=== PATIENT | female | born 1995 | race Caucasian/White ===

== ENCOUNTER 2016-09-15 12:02 | Emergency (ER) | payer OTHER ==
[~2016-09-15] VITALS: Ht 170.2 cm; Wt 102.3 kg
[2016-09-15] MEDS ORDERED: PRENTAB13 PO (12:17)
[2016-09-15 14:22] LABS: BASO % 0.3 % (0.0-1.0); EOS # 0.2 K/mm3 (0.0-0.50); EOS % 2.4 % (0.0-3.0); LARGE UNSTAINED CELL # 0.2 K/mm3 (0.0-0.4); LARGE UNSTAINED CELL % 2.3 % (0.0-4.0); LYMPH # 2.5 K/mm3 (1.5-6.5); LYMPH % 21.3 % (24.0-44.0); MEAN CORPUSCULAR HGB CONC 33.4 g/dl (32.0-36.5); MEAN CORPUSCULAR VOLUME 92.9 fl (80.0-96.0); MONO # 0.8 K/mm3 (0.0-0.8); MONO % 7.2 % (0.0-5.0); NEUTROPHILS % 66.6 % (36.0-66.0); PLATELET COUNT, AUTOMATED 411 k/mm3 (150-450); RED CELL DISTRIBUTION WIDTH 12.7 % (11.5-14.5); WHITE BLOOD COUNT 10.6 K/mm3 (4.0-10.0)
[2016-09-15] MEDS ORDERED: REGL10TA6 PO (14:39)
[2016-09-15 14:47] VITALS: BP 107/57
--- NOTE | 2016-09-15 16:23 | REP ---
FIRST TRIMESTER ULTRASOUND: Real-time sonographic evaluation of the gravid uterus is performed. Transabdominal and endovaginal technique utilized. The uterus measures 9.5 x 4.5 x 5.2 cm. There is a sac in the endometrial canal with a mean sac diameter of 7 mm. This would correspond with an estimated gestational age of 5 weeks 3 days. This does contain a yolk sac, but no pole. The right ovary measures 2.6 x 1.6 x 1.7 cm. The left ovary measures 4.8 x 3.2 x 2.4 cm. Cystic structure in left ovary may represent a corpus luteum, 2.4 x 1.4 x 1.7 cm. Blood flow is seen in each ovary with duplex Doppler evaluation, with no torsion. IMPRESSION: Intrauterine gestational sac does contain a yolk sac. The estimated gestational age is 5 weeks 3 days. There is no subchorionic hemorrhage. Left corpus luteum 2.4 cm in diameter. No torsion or free fluid. Recommend followup ultrasound in 10 to 14 days to document viability. Signed by Orlando Metz MD 09/16/2016 07:39 P
== END 2016-09-15 14:50 | disposition home or self-care (01) ==
LOC: M ED 13:24
DX: N83.12 Corpus luteum cyst of left ovary (principal); R11.0 Nausea; Z79.899 Other long term (current) drug therapy; Z3A.01 Less than 8 weeks gestation of pregnancy

== ENCOUNTER 2017-03-19 17:37 | Outpatient (CLI) | payer OTHER ==
[~2017-03-19] VITALS: Ht 160 cm; Wt 78.0 kg
[~2017-03-19 17:37] MED LIST: PRENTAB20 PO; REGL10TA6 PO
[2017-03-19 17:48] VITALS: BP 115/65
[2017-03-19] MEDS ORDERED: FERR325T3 PO (18:01)
== END 2017-03-19 18:50 | disposition home or self-care (01) ==
LOC: M LDO 17:37
PROVIDERS: ATTEND Obstetrics & Gynecology
DX: O26.893 Other specified pregnancy related conditions, third trimester (principal); Z3A.32 32 weeks gestation of pregnancy; R51 Headache; R10.9 Unspecified abdominal pain

== ENCOUNTER 2017-05-21 10:54 | Inpatient (IN) | payer OTHER ==
[2017-05-21] MEDS: LACTATED RINGER'S 1000 ML IV (11:25)
[2017-05-21] MEDS ORDERED: miSOPROStol 25 MCG 1/4 TAB (S0191) PV (11:30)
[2017-05-21] MEDS: LR 1,000 ML IV (11:44)
[2017-05-21 11:54] LABS: HEMATOCRIT 32.8 % (36.0-47.0); HEMOGLOBIN 11.1 g/dl (12.0-16.0); MEAN CORPUSCULAR HEMOGLOBIN 30.8 pg (27.0-33.0); MEAN CORPUSCULAR HGB CONC 33.8 g/dl (32.0-36.5); MEAN CORPUSCULAR VOLUME 91.1 fl (80.0-96.0); PLATELET COUNT, AUTOMATED 343 10^3/uL (150-450); RED CELL DISTRIBUTION WIDTH 14.2 % (11.5-14.5); WHITE BLOOD COUNT 14.2 10^3/uL (4.0-10.0)
[2017-05-21] MEDS: miSOPROStol 25 MCG 1/4 TAB (S0191) PV ×2 (13:21→23:00)
[2017-05-21] MEDS: miSOPROStol 25 MCG 1/4 TAB (S0191) PO ×2 (18:13→22:59)
[2017-05-22] MEDS: OXYTOCIN DRIP 30 UNITS in APPROPRIATE DILUENT 1 EA IV ×2 (03:16→14:45)
[2017-05-22] MEDS ORDERED: FENTANYL 2MCG/ML ROPIVACAINE 0.2% IN 0.9% NACL 200ML IVBAG As Ordered (03:54)
[2017-05-22] MEDS ORDERED: diphenhydrAMINE INJ 50MG/ML VIAL (J1200) IV (05:30)
[2017-05-22] MEDS ORDERED: FENTANYL/ROPIVACAINE/NACL BAG 200 ML EPIDURAL (05:30)
[2017-05-22] MEDS ORDERED: EPIDURAL COMMENT XX (05:30)
[2017-05-22] MEDS ORDERED: EPIDURAL/PCA KEYS XX (05:30)
[2017-05-22] MEDS ORDERED: REFRIGERATOR IV KEYS XX (05:30)
[2017-05-22] MEDS ORDERED: NALOXONE INJ 0.4 MG/1 ML VIAL (J2310) IV (05:30)
[2017-05-22] MEDS ORDERED: ePHEDrine SULFATE 25 MG/5 ML(5MG/ML) SYRINGE IV (05:30)
[2017-05-22] MEDS: LR 1,000 ML IV ×2 (07:53→12:05)
[2017-05-22] MEDS: ONDANSETRON 4MG/2ML VIAL (J2405) IV (08:16)
[2017-05-22] MEDS: PRENATAL VITAMINS CHEWABLE TABLET PO (09:00)
[2017-05-22 13:35] LABS: CORD GAS ABE V -2.6; CORD GAS HCO3 V 21.6 MEQ/L; CORD GAS O2 SAT V 73.9 %; CORD GAS PH V 7.396 UNITS; CORD GAS PO2 V 31.4 mmHg; CORD GAS SBC V 21.7 MEQ/L; CORD GAS TCO2 V 22.7 MEQ/L
[2017-05-22 13:37] LABS: CORD GAS ABE A -3.1; CORD GAS HCO3 A 24.9 MEQ/L; CORD GAS O2 SAT A 15.5 %; CORD GAS PCO2 A 56.4 mmHg; CORD GAS PH A 7.262 UNITS; CORD GAS PO2 A 12.2 mmHg; CORD GAS TCO2 A 26.6 MEQ/L
[2017-05-22] MEDS ORDERED: RHOGAM 300 MCG (1500 IU) INJ (J2790) IM (13:45)
[2017-05-22] MEDS ORDERED: MEASLES,MUMPS,RUBELLA VACCINE INJ (MMR-II) (90707) SC (13:45)
[2017-05-22] MEDS ORDERED: DIBUCAINE 1% OINTMENT 30GM TOP (13:45)
[2017-05-22] MEDS ORDERED: DOCUSATE SODIUM 100 MG CAP PO (13:45)
[2017-05-22] MEDS ORDERED: ANUSOL HC CREAM 30GM TOP (13:45)
[2017-05-22] MEDS ORDERED: METHYLERGONOVINE MALEATE 0.2 MG TAB PO (13:45)
[2017-05-22] MEDS: OXYTOCIN INJ 10 UNITS/ML VIAL (J2590) IV (14:45)
[2017-05-22] MEDS: ACETAMINOPHEN 500 MG TAB PO (20:36)
[2017-05-23 06:58] LABS: HEMATOCRIT 30.5 % (36.0-47.0); HEMOGLOBIN 10.2 g/dl (12.0-16.0); MEAN CORPUSCULAR HEMOGLOBIN 30.6 pg (27.0-33.0); MEAN CORPUSCULAR HGB CONC 33.4 g/dl (32.0-36.5); MEAN CORPUSCULAR VOLUME 91.6 fl (80.0-96.0); PLATELET COUNT, AUTOMATED 291 10^3/uL (150-450); RED BLOOD COUNT 3.33 10^6/uL (4.00-5.40); RED CELL DISTRIBUTION WIDTH 14.4 % (11.5-14.5); WHITE BLOOD COUNT 21.7 10^3/uL (4.0-10.0)
[2017-05-23] MEDS: PRENATAL VITAMINS CHEWABLE TABLET PO (07:29)
[2017-05-23] MEDS: IBUPROFEN 800 MG TAB PO ×2 (07:31→19:13)
[2017-05-24] MEDS: IBUPROFEN 800 MG TAB PO (07:46)
[2017-05-24] MEDS: PRENATAL VITAMINS CHEWABLE TABLET PO (07:46)
== END 2017-05-24 10:05 | disposition home or self-care (01) | DRG 775 ==
LOC: M LDI 10:54 → M OBS 05-22 15:14
PROVIDERS: Obstetrics & Gynecology
PROC: 3E033VJ Introduction of Other Hormone into Peripheral Vein, Percutaneous Approach (ICD-10-PCS; 2017-05-21)
PROC: 10E0XZZ Delivery of Products of Conception, External Approach (ICD-10-PCS; principal; 2017-05-22)
DX: O48.0 Post-term pregnancy (principal); Z37.0 Single live birth; D64.9 Anemia, unspecified; O99.02 Anemia complicating childbirth; Z3A.41 41 weeks gestation of pregnancy; O69.82X0 Labor and delivery complicated by other cord entanglement, without compression, not applicable or unspecified; O26.00 Excessive weight gain in pregnancy, unspecified trimester